=== PATIENT | female | born 1990 | race Caucasian/White ===

== ENCOUNTER → 2018-02-27 | Outpatient (CLI) | payer OTHER | LOC: FIMAGING 12:46 | PROVIDERS: ATTEND Advanced Practice Midwife | DX: Q50.5 Embryonic cyst of broad ligament (principal); D25.2 Subserosal leiomyoma of uterus ==

== ENCOUNTER → 2018-08-30 | Day surgery (SDC) | payer OTHER ==
--- NOTE | 2018-08-30 14:45 | EDPHY ---
H & P Stated Complaint: miscarriage on August 02, bleeding and dizziness since Time Seen by Provider: 08/30/18 14:45 - Medical/Surgical History Hx Asthma: No Hx Chronic Respiratory Disease: No Hx Diabetes: No Hx Cardiac Disease: No Hx Renal Disease: No Hx Cirrhosis: No Hx Alcoholism: No Hx HIV/AIDS: No Hx Splenectomy or Spleen Trauma: No Other PMH: none reported - Social History Smoking Status: Never smoked Constitutional: Initial Vital Signs Temperature (C) 37 C 08/30/18 14:34 Heart Rate 75 08/30/18 14:34 Respiratory Rate 18 08/30/18 14:34 Blood Pressure 104/79 08/30/18 14:34 O2 Sat (%) 98 08/30/18 14:34 Allergies/Adverse Reactions: effervescent medications Allergy (Uncoded 08/30/18 14:34) Home Medications: Medication Instructions Recorded NK [No Known Home Meds] 08/30/18 Medical Decision Making - Diagnostics Imaging Results: Imaging Impressions Pelvic/Renal Ultrasound 08/30/18 14:48 Impression: 1. Retained products of conception with heterogenous vascular endometrial thickening up to 8 mm. 2. Uterine leiomyomata up to 1.2 cm. 3. Left ovarian cyst measuring 4.7 x 4.1 x 3.6 cm. 4. No ovarian torsion or significant free fluid. Findings and recommendations discussed with Emergency Department physician, Real Briscoe MD at 1610 hour, 08/30/2018. Final report concurs with initial preliminary interpretation. Imaging: Discussed imaging studies w/ rn call center Radiologist, I viewed and interpreted images myself ED Course/Re-evaluation: CHIEF COMPLAINT: Vaginal bleeding, dizzy HISTORY OF PRESENT ILLNESS: The patient is a 28 y/o female complaining of vaginal bleeding and dizziness after she was diagnosed with a miscarriage on August 02, 4 weeks ago. The patient was 9 weeks and 2 days when the cramping and bleeding began. She spoke with her PCP who told the patient that she would not need further follow up. The patient was told she had an ablated ovum. However, since the bleeding continued she has started to feel dizzy. Due to these symptoms she was advised to present to the emergency department. No fever, headache, body aches, lightheadedness, chest pain, heart palpitations, shortness of breath, cough, urinary or bowel complaints, numbness, paresthesias. Last P.O was at 08:30 this morning. A security messenger was used to communicate with this patient. REVIEW OF SYSTEMS: A comprehensive 10 system review of systems is otherwise negative aside from elements mentioned in the history of present illness and medical decision making. PHYSICAL EXAM: HR, BP, O2 Sat, RR. Temp noted General Appearance: Alert, well hydrated, appropriate, and non-toxic appearing. Head: Atraumatic without scalp tenderness or obvious injury Eyes: Pupils equal, round, reactive to light and accommodation, EOMI, no trauma , no injection. Ears: Clear bilaterally, no perforation, normal landmarks Nose: Atraumatic, no rhinorrhea, clear. Throat: There is no erythema or exudates, no lesions, normal tonsils, mucus membranes moist. Neck: Supple, 2+ carotid upstroke, nontender, no lymphadenopathy. Respiratory: No retractions, no distress, no wheezes, and no accessory muscle use. Lungs are clear to auscultation bilaterally. Cardiovascular: Regular rate and rhythm, no murmurs, rubs, or gallops. Bilateral carotid, radial, dorsalis pedis, and posterior tibial pulses intact. Good capillary refill all extremities. Gastrointestinal: Suprapubic tenderness to palpation. Abdomen is soft, non- distended, no masses, no rebound, no guarding, no peritoneal signs. Musculoskeletal: Normal active ROM of all extremities, atraumatic. Neurological: Alert, appropriate, and interactive. The patient has normal DTRs and non-focal cranial nerves, motor, sensory, and cerebellar exam. Skin: No rashes, good turgor, no nodules on palpation. Past medical history: Denies Past surgical history: Denies Family history: Denies Social history: Boyfriend at bedside, lives in [place], employed DIAGNOSTICS/PROCEDURES/CRITICAL CARE TIME: Pelvic US: Retained products and a thickened endometrium that is 8-9mm at it's thickest. DIFFERENTIAL DIAGNOSIS: The differential diagnosis for the patient's vaginal bleeding included but was not limited to septic , endometritis, ectopic , menses, miscarriage, and dysfunctional uterine bleeding. MEDICAL DECISION MAKING: The patient is a 28 y/o female presenting with vaginal bleeding and dizziness after she was diagnosed with a miscarriage on August 02, 4 weeks ago. The patient was 9 weeks and 2 days when the cramping and bleeding began. On exam she has suprapubic tenderness to palpation. She is not systemically ill appearing. 1613: I spoke with Dr. Munguia, radiologist, who reports that the patient has retained products and a thickened endometrium that is 8-9mm at it's thickest. I will page the SPRINKLER TENDER. There are no signs of endometritis or septic as she is not systemically ill. She does not have an elevated WBC. 1645: I consulted Dr. Martines, SPRINKLER TENDER, regarding this patient. She will take this patient to Labor and Delivery for a D&C. - Data Points Laboratory Results: Laboratory Results 08/30/18 14:55 08/30/18 14:55 08/30/18 08/30/18 08/30/18 15:50 15:24 15:15 WBC RBC Hgb Hct MCV MCH MCHC RDW Plt Count MPV Neut % (Auto) Lymph % (Auto) Park % (Auto) Eos % (Auto) Baso % (Auto) Nucleat RBC Rel Count Absolute Neuts (auto) Absolute Lymphs (auto) Absolute Monos (auto) Absolute Eos (auto) Absolute Basos (auto) Absolute Nucleated RBC Immature Gran % Immature Gran # PT INR APTT VBG Lactic Acid 0.7 mmol/L mmol/L (0.7-2.1) Sodium Potassium Chloride Carbon Dioxide Anion Gap BUN Creatinine Estimated GFR Glucose Calcium Total Bilirubin Beta HCG, Quant Urine Color YELLOW Urine Appearance HAZY Urine pH 5.0 (5.0-7.5) Ur Specific [place] 1.011 (1.002-1.030) Urine Protein NEGATIVE (NEGATIVE) Urine Ketones 1+ H (NEGATIVE) Urine Blood 3+ H (NEGATIVE) Urine Nitrate NEGATIVE (NEGATIVE) Urine Bilirubin NEGATIVE (NEGATIVE) Urine Urobilinogen NEGATIVE EU EU (0.2-1.0) Ur Leukocyte Esterase TRACE H (NEGATIVE) Urine RBC 50-182 /hpf H /hpf (0-3) Urine WBC 5-10 /hpf H /hpf (0-3) Ur Epithelial Cells TRACE /lpf /lpf (NONE-1+) Urine Glucose NEGATIVE (NEGATIVE) Patient ABO/Rh O POSITIVE 08/30/18 08/30/18 08/30/18 14:55 14:55 14:55 WBC 5.00 10^3/uL 10^3/uL (3.80-9.50) RBC 4.82 10^6/uL 10^6/uL (4.18-5.33) Hgb 13.2 g/dL g/dL (12.6-16.3) Hct 39.9 % % (38.0-47.0) MCV 82.8 fL fL (81.5-99.8) MCH 27.4 pg L pg (27.9-34.1) MCHC 33.1 g/dL g/dL (32.4-36.7) RDW 13.4 % % (11.5-15.2) Plt Count 254 10^3/uL 10^3/uL (150-400) MPV 8.9 fL fL (8.7-11.7) Neut % (Auto) 53.6 % % (39.3-74.2) Lymph % (Auto) 35.2 % % (15.0-45.0) Park % (Auto) 8.0 % % (4.5-13.0) Eos % (Auto) 2.0 % % (0.6-7.6) Baso % (Auto) 0.8 % % (0.3-1.7) Nucleat RBC Rel Count 0.0 % % (0.0-0.2) Absolute Neuts (auto) 2.68 10^3/uL 10^3/uL (1.70-6.50) Absolute Lymphs (auto) 1.76 10^3/uL 10^3/uL (1.00-3.00) Absolute Monos (auto) 0.40 10^3/uL 10^3/uL (0.30-0.80) Absolute Eos (auto) 0.10 10^3/uL 10^3/uL (0.03-0.40) Absolute Basos (auto) 0.04 10^3/uL 10^3/uL (0.02-0.10) Absolute Nucleated RBC 0.00 10^3/uL 10^3/uL (0-0.01) Immature Gran % 0.4 % % (0.0-1.1) Immature Gran # 0.02 10^3/uL 10^3/uL (0.00-0.10) PT 12.6 SEC SEC (12.0-15.0) INR 0.98 (0.83-1.16) APTT 32.9 SEC SEC (23.0-38.0) VBG Lactic Acid Sodium 140 mEq/L mEq/L (135-145) Potassium 3.8 mEq/L mEq/L (3.5-5.2) Chloride 105 mEq/L mEq/L (97-110) Carbon Dioxide 24 mEq/l mEq/l (22-31) Anion Gap 11 mEq/L mEq/L (6-14) BUN 10 mg/dL mg/dL (7-23) Creatinine 0.6 mg/dL mg/dL (0.6-1.0) Estimated GFR > 60 Glucose 87 mg/dL mg/dL (70-100) Calcium 9.7 mg/dL mg/dL (8.5-10.4) Total Bilirubin 0.2 mg/dL mg/dL (0.1-1.4) Beta HCG, Quant 6.51 mIU/mL H mIU/mL (0.00-4.83) Urine Color Urine Appearance Urine pH Ur Specific [place] Urine Protein Urine Ketones Urine Blood Urine Nitrate Urine Bilirubin Urine Urobilinogen Ur Leukocyte Esterase Urine RBC Urine WBC Ur Epithelial Cells Urine Glucose Patient ABO/Rh Departure - Departure Disposition: Home, Routine, Self-Care Clinical Impression: Retained products of conception after miscarriage Condition: Fair Instructions: Miscarriage (ED) Referrals: [facility] [Other] - As per Instructions Print Language: Turkish Report Scribed for: Real Briscoe Report Scribed by: Pallavi Gold Date of Report: 08/30/18 Time of Report: 15:03
[2018-08-30 15:07] LABS: PLATELET COUNT 254 10^3/uL (150-400)
[2018-08-30 16:07] LABS: INR 0.98 (0.83-1.16); PROTIME(PATIENT) 12.6 SEC (12.0-15.0)
[2018-08-30 17:14] VITALS: BP 105/64
--- NOTE | 2018-08-30 19:28 | GPROG ---
[f rep st] PROGRESS NOTE FLOOR LAYER TILE CONSULTATION DATE OF SERVICE: 08/30/2018 HISTORY OF CONSULTATION: I was contacted to consult, assess, and manage this patient's possible verna ined tissue after a miscarriage. I was contacted by Dr. Real Briscoe from the emergency ro om. To facilitate management if the patient needed a D and C, the patient was sent up to [facility] in preparations for the operating room. That is where I met with the patient and her partner . The patient is a 28-year-old G1, P0, who had a sure last menstrual period of May 28, who had jhonny moss seen at [facility], as well as [facility] multiple times early in her , trying to asses s if the was viable. The patient reports many ultrasounds where there was no sign of viabi lity, but a gestational sac and fluid. There was no development of an embryo. The patient occasiona lly was having cramping but no bleeding. On August 01, the patient had another ultrasound that again did not reveal any viability or pole, and the patient was approximately 9-1/2 weeks from last mens trual period. The patient was advised to continue and wait until 12 weeks to make sure. The patient began having the onset of heavy bleeding on August 02 with heavy bleeding and cramping for over a week. The bleeding tapered off and was receptionist telephone operator; however, it continued daily. The patient began having aga in heavy flow, more than a menstrual cycle, this past weekend. The patient presented to [facility] and had an ultrasound, was felt to be lightheaded, and was advised to proceed to the emergency room . The patient was seen today and had an ultrasound, which revealed possible retained POCs with a vas cular endometrial thickening up to 8 mm. The uterus does show signs of multiple small fibroids, as w ell as a left ovarian cyst at 4.7 cm. The patient was hemodynamically stable. She has not had any o ral intake since 10 o'clock this morning, and wanted to proceed with a D and C. Discussion with the patient, the taking of history, and discussing the management of the bleeding were done through the u se of a document control supervisor. The patient is advised as to the potential risks of a D and C with poss ible scarring of the endometrial lining, perforation to the uterus, or injury to the cervix. The pat ient is advised these risks are low. The patient is also counseled that the current visual images wi th ultrasound are possibly consistent with retained tissue. However, this is low likelihood with the hCG level of 6. I discussed with the patient the option of trying Cytotec to see if this would help her uterus contract to be able to release any thickened endometrium or clot tissue, or if there is a ny retained inactive tissue. We discussed Cytotec taken in 2 doses to possibly avoid a curt jaya if she indeed does not have any retained tissue. Approximately an hour was spent with the patie nt and her partner, and working through a manager wireless obtaining the patient's history of the and the bleeding. Greater than 50% of the visit was in counseling about the options to manage the p ersistent bleeding, and subsequent things to check and follow up with. After the patient became awar e that her hCG level was extremely low and that there was a high possibility that this did not involv e any retained tissue, then she more wanted to proceed with the Cytotec treatment. This is also poss ibly her first menstrual cycle after the miscarriage, and hopefully the Cytotec will bring about reso lution. PAST MEDICAL HISTORY: Negative. PAST SURGICAL HISTORY: Negative. CURRENT MEDICATIONS: None. ALLERGIES: Only effervescent medicine like Susana-Elma. PHYSICAL EXAM: GENERAL: The patient is a well-developed, well-nourished female in no physi kirstie signs of distress. The patient is conversational and articulate. VITAL SIGNS: All normal. See nursing documentation for full details. ABDOMEN: Soft and nontender. PELVIC EXAM: Deferred. EXT REMITIES: Nontender. No edema. LABORATORY DATA: Lab values reveal a stable CBC with white count of 5, hemoglobin and hematocrit of 13 and 39, and normal platelets. PT and PTT normal. Normal chemistry profile. HCG of 6.5. ASSESSMENT: Persistent vaginal bleeding after a miscarriage. Ultrasound reveals possible retained p roducts of conception, however, hCG level of 6.5. Endometrial lining of only 8 mm. Possibly at the end of 1st menstrual cycle after the miscarriage. No current signs of uterine infection. PLAN: The patient will proceed with Cytotec 400 mcg orally at night and repeat in 12 hours. She is given a prescription for this medication to fill at her pharmacy. The patient is given a note to be cleared from work on 08/31 due to possible cramping with the Cytotec. The patient is advised to avoi d swimming, tub baths, intercourse, and tampons for at least a week after any bleeding. The patient is advised to follow up with Ashley Delaney in 1 week to assure resolution of bleeding. Copy requested to: Ashley Delaney /[id number]/MODL
== END | disposition home or self-care (01) ==
LOC: FOBOP 17:04
PROVIDERS: ATTEND Obstetrics & Gynecology
DX: N93.9 Abnormal uterine and vaginal bleeding, unspecified (principal); Z53.09 Procedure and treatment not carried out because of other contraindication